=== PATIENT | female | born 1990 ===

== ENCOUNTER 2020-02-03 04:58 | Emergency (ER) | payer SELFPAY ==
[2020-02-03 05:08] VITALS: BP 125/83
[2020-02-03] MEDS ORDERED: FAMOTIDINE 20 MG/2 ML INJ IV ONE (05:09)
[2020-02-03] MEDS ORDERED: ONDANSETRON 4 MG/2 ML INJ IV ONE (05:09)
[2020-02-03] MEDS ORDERED: SODIUM CHLORIDE 0.9% 1000 ML 1,000 ML IV ONE (05:10)
[2020-02-03] MEDS ORDERED: MORPHINE 4 MG/1 ML INJ IV ONE ×2 (05:20→06:31)
[2020-02-03 05:55] LABS: HCG Qualitative,Urine Negative (Negative)
[2020-02-03 05:56] LABS: Bilirubin,Urine NEG (Negative); Blood,Urine NEG (Negative); Color,Urine Yellow (Yellow); Hyaline Casts,Urine 2 /LPF; Mucus,Urine 3+ /HPF; Urobilinogen,Urine < 2.0 mg/dL (<2.0)
[2020-02-03 05:57] LABS: Hematocrit 37.7 % (30.3-42.9); Hemoglobin 13.3 gm/dl (10.1-14.3); Mean Corpuscular HGB Conc 35 % (30-34); Mean Corpuscular Volume 91 fl (79-97); Platelet Count 260 K/mm3 (140-440); Red Blood Count 4.14 M/mm3 (3.65-5.03); Red Cell Distribution Width 13.5 % (13.2-15.2)
--- NOTE | 2020-02-03 06:15 | Emergency Department Report ---
ED N/V/D HPI - General Chief complaint: Abdominal Pain Stated complaint: ABD PAIN Source: patient, EMS Mode of arrival: Ambulatory Limitations: No Limitations - History of Present Illness Initial comments: Patient is a 29-year-old female with past medical history of asthma and GERD who presents to the ED with complaint of acute onset persistent diffuse epigastric pain with intractable nausea and vomiting for the last 12 hours. Patient also complains of low back pain. Patient states that she has not been able to keep anything down and that the epigastric pain has worsened especially in the last 8 hours due to intractable nausea and vomiting. Patient states that no one else at home is had similar symptoms. Patient denies diarrhea, dysuria, urinary frequency and urgency, fever, chills, cough, shortness of breath, chest pain, sore throat, headache, dizziness, syncope, hematemesis, hematochezia, vaginal discharge, vaginal bleeding or change in vision or palpitations. MD complaint: nausea, vomiting, abdominal pain (epigastric) -: Sudden, hour(s) (12) Description of Vomiting: food contents Description of Diarrhea: other (None) Associated Abdominal Pain: Yes (Epigastric pain) Location: epigastric Radiation: none Severity: severe Pain Scale: 7 Quality: aching, constant Consistency: constant Improves with: none Worsens with: eating, vomiting Context: possible food poisoning Associated Symptoms: denies other symptoms, loss of appetite, nausea/vomiting. denies: myalgias, chest pain, cough, diaphoresis, fever/chills, headaches, malaise, rash, dysuria, shortness of breath, syncope, other - Related Data Previous Rx's Medication Instructions Recorded Last Taken Type Dicyclomine [Bentyl] 20 mg PO Q6H PRN #30 tablet 02/03/20 Unknown Rx Famotidine [Pepcid] 20 mg PO Q12H #60 tablet 02/03/20 Unknown Rx Ondansetron [Zofran Odt] 4 mg PO Q6HR PRN #20 tab.rapdis 02/03/20 Unknown Rx Allergies Allergy/AdvReac Type Severity Reaction Status Date / Time No Known Allergies Allergy Unverified 02/03/20 04:59 ED Review of Systems ROS: Stated complaint: ABD PAIN Other details as noted in HPI Constitutional: denies: chills, fever Eyes: denies: eye pain, eye discharge, vision change ENT: denies: ear pain, throat pain Respiratory: denies: cough, shortness of breath, wheezing Cardiovascular: denies: chest pain, palpitations Endocrine: no symptoms reported Gastrointestinal: abdominal pain, nausea, vomiting. denies: diarrhea Genitourinary: denies: urgency, dysuria, discharge Musculoskeletal: denies: back pain, joint swelling, arthralgia Skin: denies: rash, lesions Neurological: denies: headache, weakness, paresthesias Psychiatric: denies: anxiety, depression Hematological/Lymphatic: denies: easy bleeding, easy bruising ED Past Medical Hx - Past Medical History Previous Medical History?: Yes Hx Asthma: Yes - Surgical History Past Surgical History?: No - Social History Smoking Status: Never Smoker Substance Use Type: None - Medications Home Medications: Home Medications Medication Instructions Recorded Confirmed Last Taken Type Dicyclomine [Bentyl] 20 mg PO Q6H PRN #30 tablet 02/03/20 Unknown Rx Famotidine [Pepcid] 20 mg PO Q12H #60 tablet 02/03/20 Unknown Rx Ondansetron [Zofran Odt] 4 mg PO Q6HR PRN #20 tab.rapdis 02/03/20 Unknown Rx ED Physical Exam - General Limitations: No Limitations General appearance: alert, in no apparent distress - Head Head exam: Present: atraumatic, normocephalic, normal inspection - Eye Eye exam: Present: normal appearance, PERRL, EOMI Pupils: Present: normal accommodation - ENT ENT exam: Present: normal exam, normal orophraynx, mucous membranes moist, TM's normal bilaterally, normal external ear exam - Neck Neck exam: Present: normal inspection, full ROM - Respiratory Respiratory exam: Present: normal lung sounds bilaterally. Absent: respiratory distress, wheezes, rales, rhonchi, chest wall tenderness, accessory muscle use, decreased breath sounds - Cardiovascular Cardiovascular Exam: Present: regular rate, normal rhythm, normal heart sounds. Absent: systolic murmur, diastolic murmur, rubs, gallop - GI/Abdominal GI/Abdominal exam: Present: soft, tenderness (Palpable epigastric tenderness), normal bowel sounds. Absent: guarding, rebound, rigid, hyperactive bowel sounds, hypoactive bowel sounds - Extremities Exam Extremities exam: Present: normal inspection, full ROM, normal capillary refill - Back Exam Back exam: Present: normal inspection, full ROM. Absent: tenderness, CVA tenderness (R), CVA tenderness (L), muscle spasm, paraspinal tenderness, vertebral tenderness - Neurological Exam Neurological exam: Present: alert, oriented X3, CN II-XII intact, normal gait, reflexes normal - Psychiatric Psychiatric exam: Present: normal affect, normal mood - Skin Skin exam: Present: warm, dry, intact, normal color. Absent: rash ED Course Vital Signs 02/03/20 05:02 Temperature 98.3 F Pulse Rate 82 Respiratory 16 Rate Blood Pressure 125/83 O2 Sat by Pulse 99 Oximetry ED Medical Decision Making - Lab Data Result diagrams: 02/03/20 05:35 02/03/20 05:35 - Medical Decision Making This is a 29-year-old female with past medical history of asthma and GE RD who presents to the ED with complaint of acute onset persistent diffuse epigastric pain with intractable nausea and vomiting for the last 12 hours. Patient also complains of low back pain. Patient states that she has not been able to keep anything down and that the epigastric pain has worsened especially in the last 8 hours due to intractable nausea and vomiting. Patient states that no one else at home is had similar symptoms. In the ED, patient is alert and oriented x3 and is not in distress with normal vital signs. Patient was treated for nausea and vomiting in the ED, also given pain medication and antacids, as well as normal saline 1 L IV bolus x1. Lab test results were reviewed and showed acute leukocytosis of 13,600 and mild hyponatremia 136 mmol/L. The rest of the lab test results are unremarkable. On reevaluation, patient's pain is well controlled medications. Patient was discharged home on antiemetics, antacids and antispasmodics and was advised to maintain a clear liquid diet for 12 to 24 hours, drink plenty of fluids and follow-up with our primary care physician in 3 to 5 days for reevaluation or return to the ED immediately if symptoms get worse. - Differential Diagnosis Gastritis; GERD; Viral gastroenteritis; Dehydration; ; UTI Critical care attestation.: If time is entered above; I have spent that time in minutes in the direct care of this critically ill patient, excluding procedure time. ED Disposition Clinical Impression: Viral gastroenteritis, Nausea and vomiting in adult patient GERD (gastroesophageal reflux disease) Qualifiers: Esophagitis presence: without esophagitis Qualified Code(s): K21.9 - Gastro- esophageal reflux disease without esophagitis Disposition: TO HOME OR SELFCARE Is pt being admited?: No Does the pt Need Aspirin: No Condition: Stable Instructions: Viral Gastroenteritis, Adult, [id number], Nausea and Vomiting, Adult, [id number], Gastroesophageal Reflux Disease, Adult, [id number], Abdominal Pain (ED) Additional Instructions: Maintain a clear liquid diet for 12 to 24 hours, take medication as needed for nausea and vomiting and pain, drink plenty of fluids and follow-up with a primary care physician in 5 to 7 days for reevaluation or return to the ED immediately if symptoms get worse. Prescriptions: Dicyclomine [Bentyl] 20 mg PO Q6H PRN #30 tablet PRN Reason: Abdominal pain Famotidine [Pepcid] 20 mg PO Q12H #60 tablet Ondansetron [Zofran Odt] 4 mg PO Q6HR PRN #20 tab.rapdis PRN Reason: Nausea Referrals: [facility] [Provider Group] - 3-5 Days Time of Disposition: 06:16 Print Language: SCOTTISH
[2020-02-03 06:20] LABS: Alanine Aminotransferase 32 units/L (7-56); Albumin 4.2 g/dL (3.9-5); Blood Urea Nitrogen 16 mg/dL (7-17); Calcium 9.4 mg/dL (8.4-10.2); Hemolysis Index 6
[2020-02-03 06:21] LABS: BUN/Creatinine Ratio 40
[2020-02-03] MEDS ORDERED: DICYCLOMINE 20 MG/2 ML INJ IM ONE ×2 (06:31)
[2020-02-03] MEDS ORDERED: HYDROmorphone 1 MG/1 ML INJ IV ONE (07:00)
[2020-02-03] MEDS ORDERED: METOCLOPRAMIDE 10 MG/2 ML INJ IV ONE (07:01)
[2020-02-03] MEDS ORDERED: diphenhydrAMINE 50 MG/ML VIAL IV ONE (07:01)
[2020-02-03 07:04] LABS: Basophils % (Manual) 0 % (0.0-1.8); Eosinophils % (Manual) 0 % (0.0-4.3); Platelet Estimate Consistent w Auto; Total Cells Counted 100
== END 2020-02-03 07:42 | disposition home or self-care (01) ==
LOC: ED 04:58
DX: A08.4 Viral intestinal infection, unspecified (principal); K21.9 Gastro-esophageal reflux disease without esophagitis; R11.2 Nausea with vomiting, unspecified; J45.909 Unspecified asthma, uncomplicated; Z79.899 Other long term (current) drug therapy
CPT/HCPCS: 36415; 80053; 81001; 81025; 83690; 85007; 85025; 96361; 96372; 96374; 96375; 96376; 99284; J0500; J1170; J1200; J2270; J2405; J2765; J7030

== ENCOUNTER 2020-03-06 04:55 | Observation (INO) | payer MEDICAID ==
[2020-03-06] MEDS ORDERED: MORPHINE 4 MG/1 ML INJ IV ONE ×3 (05:06→10:44)
[2020-03-06] MEDS ORDERED: FAMOTIDINE 20 MG/2 ML INJ IV ONE ×2 (05:06→08:47)
[2020-03-06] MEDS ORDERED: SODIUM CHLORIDE 0.9% 1000 ML 1,000 ML IV ONE (05:06)
[2020-03-06] MEDS ORDERED: ONDANSETRON 4 MG/2 ML INJ IV ONE (05:06)
[2020-03-06 05:30] LABS: Basophils % (Auto) 0.1 % (0.0-1.8); Eosinophils % (Auto) 0.4 % (0.0-4.3); Hematocrit 38.5 % (30.3-42.9); Hemoglobin 13.3 gm/dl (10.1-14.3); Lymphocytes # (Auto) 1.1 K/mm3 (1.2-5.4); Lymphocytes % (Auto) 12.7 % (13.4-35.0); Mean Corpuscular HGB Conc 35 % (30-34); Mean Corpuscular Volume 92 fl (79-97); Monocytes # (Auto) 0.4 K/mm3 (0.0-0.8); Monocytes % (Auto) 4.3 % (0.0-7.3); Platelet Count 264 K/mm3 (140-440); Red Blood Count 4.17 M/mm3 (3.65-5.03); Red Cell Distribution Width 13.6 % (13.2-15.2)
[2020-03-06 05:51] LABS: Alanine Aminotransferase 27 units/L (7-56); Albumin 4.2 g/dL (3.9-5); Blood Urea Nitrogen 17 mg/dL (7-17); Calcium 9.6 mg/dL (8.4-10.2); Hemolysis Index 3
[2020-03-06 06:03] LABS: BUN/Creatinine Ratio 34
--- NOTE | 2020-03-06 06:50 | Ultrasound Report ---
US abdomen limited INDICATION: Epigastric pain: h/o Gallstones COMPARISON: None. FINDINGS: Pancreas: No significant abnormality identified in the visualized portions of the pancreas. Abdominal aorta: No significant abnormality. IVC: Normal. Liver: No significant abnormality. Gallbladder: Gallstones are present without gallbladder wall thickening or pericholecystic fluid. Bile ducts: There is a stone seen within the common bile duct. The common bile duct measures 8 mm. Additional findings: No significant additional findings. IMPRESSION: Numerous gallstones without other sonographic evidence of acute cholecystitis. There is a stone seen within the common bile duct resulting in mild common bile duct dilation. Signer Name: Tex Christopher MD Signed: 03/06/2020 6:46 AM Workstation Name: [id number]
--- NOTE | 2020-03-06 08:25 | Emergency Department Report ---
ED Abdominal Pain HPI - General Chief Complaint: Abdominal Pain Stated Complaint: ABDOMINAL PAIN Time Seen by Provider: 03/06/20 07:58 Source: patient, old records reviewed Mode of arrival: Ambulatory Limitations: No Limitations - History of Present Illness Initial Comments: 29-year-old female with a past medical history of asthma presents to the hospit al complaining of sudden onset epigastric pain about 4 AM that progressively worsened over several hours. Pain is constant, burning, worse with palpation. Pain started after eating Caesar salad and Ramen noodles. No alleviating factors reported. Pain is moderate to severe in intensity. Positive associated nausea and vomiting without hematemesis or coffee-ground emesis. Patient also denies melena, hematochezia, or fever. Patient was seen here early January with similar pain and was told she probably has inflammation of the gallbladder. She did not receive any imaging at that time. - Related Data Previous Rx's Medication Instructions Recorded Last Taken Type Dicyclomine [Bentyl] 20 mg PO Q6H PRN #30 tablet 02/03/20 Unknown Rx Famotidine [Pepcid] 20 mg PO Q12H #60 tablet 02/03/20 Unknown Rx Ondansetron [Zofran Odt] 4 mg PO Q6HR PRN #20 tab.rapdis 02/03/20 Unknown Rx Allergies Allergy/AdvReac Type Severity Reaction Status Date / Time No Known Allergies Allergy Verified 03/06/20 05:07 ED Review of Systems ROS: Stated complaint: ABDOMINAL PAIN Other details as noted in HPI Comment: All other systems reviewed and negative ED Past Medical Hx - Past Medical History Previous Medical History?: Yes Hx Asthma: Yes Additional medical history: inflamation of gall bladder - Surgical History Past Surgical History?: No - Social History Smoking Status: Never Smoker Substance Use Type: Alcohol - Medications Home Medications: Home Medications Medication Instructions Recorded Confirmed Last Taken Type Dicyclomine [Bentyl] 20 mg PO Q6H PRN #30 tablet 02/03/20 Unknown Rx Famotidine [Pepcid] 20 mg PO Q12H #60 tablet 02/03/20 Unknown Rx Ondansetron [Zofran Odt] 4 mg PO Q6HR PRN #20 tab.rapdis 02/03/20 Unknown Rx ED Physical Exam - General Limitations: No Limitations - Other Other exam information: General: No acute distress Head: Atraumatic Eyes: normal appearance, nonicteric sclera ENT: Moist mucous membranes Neck: Normal appearance, no midline tenderness Chest: Clear to auscultation bilaterally CV: Regular rate and rhythm Abdomen: Soft, normal bowel sounds, epigastric tenderness without rebound or guarding. No distention Back: Normal inspection Extremity: Normal inspection, full range of motion Neuro: Alert O x 3, no facial asymmetry, speech clear, no gross motor sensory deficit Psych: Appropriate behavior Skin: No rash ED Course Vital Signs 03/06/20 03/06/20 05:05 08:53 Temperature 97.9 F Pulse Rate 82 Respiratory 18 18 Rate Blood Pressure 120/82 O2 Sat by Pulse 95 Oximetry - Consultations Consultation #1: 03/06/20 09:39 Dr Banks came to the ED to evaluate patient and recommends admission for ERCP and request surgery consult 03/06/20 09:48 Dr Delatorre (gen surgery) contacted and will evaluate patient during admission. ED Medical Decision Making - Lab Data Result diagrams: 03/06/20 05:15 03/06/20 05:15 Lab Results 03/06/20 03/06/20 03/06/20 Range/Units 05:15 05:15 05:15 WBC 9.0 (4.5-11.0) K/mm3 RBC 4.17 (3.65-5.03) M/mm3 Hgb 13.3 (10.1-14.3) gm/dl Hct 38.5 (30.3-42.9) % MCV 92 (79-97) fl MCH 32 (28-32) pg MCHC 35 H (30-34) % RDW 13.6 (13.2-15.2) % Plt Count 264 (140-440) K/mm3 Lymph % (Auto) 12.7 L (13.4-35.0) % [place] % (Auto) 4.3 (0.0-7.3) % Eos % (Auto) 0.4 (0.0-4.3) % Baso % (Auto) 0.1 (0.0-1.8) % Lymph # (Auto) 1.1 L (1.2-5.4) K/mm3 [place] # (Auto) 0.4 (0.0-0.8) K/mm3 Eos # (Auto) 0.0 (0.0-0.4) K/mm3 Baso # (Auto) 0.0 (0.0-0.1) K/mm3 Seg Neutrophils % 82.5 H (40.0-70.0) % Seg Neutrophils # 7.4 (1.8-7.7) K/mm3 Sodium 133 L (137-145) mmol/L Potassium 3.9 (3.6-5.0) mmol/L Chloride 98.9 (98-107) mmol/L Carbon Dioxide 22 (22-30) mmol/L Anion Gap 16 mmol/L BUN 17 (7-17) mg/dL Creatinine 0.5 L (0.6-1.2) mg/dL Estimated GFR > 60 ml/min BUN/Creatinine Ratio 34 % Glucose 124 H (65-100) mg/dL Calcium 9.6 (8.4-10.2) mg/dL Total Bilirubin 1.00 (0.1-1.2) mg/dL AST 22 (5-40) units/L ALT 27 (7-56) units/L Alkaline Phosphatase 145 H (35-129) units/L Total Protein 7.2 (6.3-8.2) g/dL Albumin 4.2 (3.9-5) g/dL Albumin/Globulin Ratio 1.4 % Lipase 25 (13-60) units/L HCG, Qual Negative (Negative) - Radiology Data Radiology results: report reviewed US abdomen limited INDICATION: Epigastric pain: h/o Gallstones COMPARISON: None. FINDINGS: Pancreas: No significant abnormality identified in the visualized portions of the pancreas. Abdominal aorta: No significant abnormality. IVC: Normal. Liver: No significant abnormality. Gallbladder: Gallstones are present without gallbladder wall thickening or pericholecystic fluid. Bile ducts: There is a stone seen within the common bile duct. The common bile duct measures 8 mm. Additional findings: No significant additional findings. IMPRESSION: Numerous gallstones without other sonographic evidence of acute cholecystitis. There is a stone seen within the common bile duct resulting in mild common bile duct dilation. - Medical Decision Making 29-year-old female presents to the hospital epigastric pain, nausea, vomiting secondary to choledocholithiasis with mild common bile duct dilatation. Case discussed with GI on-call who recommends admission for ERCP with surgical consultation for possible cholecystectomy. At this time no signs of leukocytosis, elevated LFTs with exception of alk phos, or elevated lipase. Patient treated in the ER with morphine, Zofran, Pepcid, and IV fluids with some mild relief in pain with initial morphine dose. Nausea improved. Additional morphine provided. GI and general surgery consulted Critical Care Time: No Critical care attestation.: If time is entered above; I have spent that time in minutes in the direct care of this critically ill patient, excluding procedure time. ED Disposition Clinical Impression: Choledocholithiasis, Intractable abdominal pain, Cholelithiasis Disposition: OP ADMIT IP TO THIS HOSP Is pt being admited?: Yes Condition: Stable Instructions: Abdominal Pain (ED) Time of Disposition: 09:43 (Dr Young/hospitalist)
[2020-03-06] MEDS ORDERED: SODIUM CHLORIDE 0.9% 1000 ML 1,000 ML ONE (08:47)
[2020-03-06] MEDS ORDERED: ONDANSETRON 4 MG/2 ML INJ ONE (08:55)
--- NOTE | 2020-03-06 10:43 | Gastroenterology Consultation ---
History of Present Illness - Reason for Consult Consult date: 03/06/20 Choledocholithiasis Requesting physician: TIMO MORRELL - History of Present Illness Ms. kong alas 29-year-old female presents with abdominal pain found to have choledocholithiasis Patient reports for the last few years she has intermittent abdominal pain in the upper abdomen cramping in quality radiating to the back associate with nausea may be related to eating fatty foods. She reports over the last few months the symptoms have been getting worse, and she reports this is her second ER visit in the last month as her symptoms have been getting progressively worse. She reports currently her pain is mildly improved with the morphine that she received. Prior to receiving the morphine she reports she was having pain that was severe, epigastric, cramping, radiating to the back, associate with nausea and vomiting, duration 1 day, brought on by eating Caesar salad and chicken tenders, worse with eating better with pain medication, overall symptoms getting worse. Obtained/updated/reviewed patient's current medications Past History Past Surgical History: No surgical history Social history: no significant social history Family history: no significant family history Medications and Allergies Allergies Allergy/AdvReac Type Severity Reaction Status Date / Time No Known Allergies Allergy Verified 03/06/20 05:07 Home Medications Medication Instructions Recorded Confirmed Last Taken Type Dicyclomine [Bentyl] 20 mg PO Q6H PRN #30 tablet 02/03/20 Unknown Rx Famotidine [Pepcid] 20 mg PO Q12H #60 tablet 02/03/20 Unknown Rx Ondansetron [Zofran Odt] 4 mg PO Q6HR PRN #20 tab.rapdis 02/03/20 Unknown Rx Review of Systems - Review of Systems All systems: negative (10 Systems reviewed and negative except as mentioned above in the history of present illness) Exam - Constitutional Vital Signs: Temp Pulse Resp BP Pulse Ox 97.9 F 82 18 120/82 95 03/06/20 05:05 03/06/20 05:05 03/06/20 08:53 03/06/20 05:05 03/06/20 05:05 General appearance: no acute distress - EENT Eyes: EOM intact - Neck Neck: supple - Respiratory Respiratory effort: normal - Cardiovascular Rhythm: regular - Gastrointestinal General gastrointestinal: Present: soft, tender - Integumentary Integumentary: Present: dry - Musculoskeletal Musculoskeletal: normal - Neurologic Neurological: alert and oriented x3 - Psychiatric Psychiatric: appropriate mood/affect - Labs CBC & Chem 7: 03/06/20 05:15 03/06/20 05:15 Lab Results: Laboratory Results - last 24 hr 03/06/20 03/06/20 03/06/20 05:15 05:15 05:15 WBC 9.0 RBC 4.17 Hgb 13.3 Hct 38.5 MCV 92 MCH 32 MCHC 35 H RDW 13.6 Plt Count 264 Lymph % (Auto) 12.7 L [place] % (Auto) 4.3 Eos % (Auto) 0.4 Baso % (Auto) 0.1 Lymph # (Auto) 1.1 L [place] # (Auto) 0.4 Eos # (Auto) 0.0 Baso # (Auto) 0.0 Seg Neutrophils % 82.5 H Seg Neutrophils # 7.4 Sodium 133 L Potassium 3.9 Chloride 98.9 Carbon Dioxide 22 Anion Gap 16 BUN 17 Creatinine 0.5 L Estimated GFR > 60 BUN/Creatinine Ratio 34 Glucose 124 H Calcium 9.6 Total Bilirubin 1.00 AST 22 ALT 27 Alkaline Phosphatase 145 H Total Protein 7.2 Albumin 4.2 Albumin/Globulin Ratio 1.4 Lipase 25 HCG, Qual Negative Assessment and Plan Patient with choledocholithiasis and enlarged common bile duct on imaging, there fore recommend maintain patient n.p.o. and ERCP later today to remove the stone. Additionally recommend consulting surgery in order for patient undergo cholecystectomy as she has had recurrent episodes of symptoms then she would benefit from early cholecystectomy - Patient Problems (1) Choledocholithiasis Current Visit: Yes Status: Acute (2) Cholelithiasis Current Visit: Yes Status: Acute (3) Intractable abdominal pain Current Visit: Yes Status: Acute
[2020-03-06 11:03] LABS: Bacteria,Urine 1+ /HPF (Negative); Bilirubin,Urine NEG (Negative); Blood,Urine NEG (Negative); Color,Urine Colorless (Yellow); Protein,Urine <15 mg/dL mg/dL (Negative); Urobilinogen,Urine < 2.0 mg/dL (<2.0)
[2020-03-06] MEDS ORDERED: SODIUM CHLORIDE 0.9% 1000 ML 1,000 ML IV SCH (11:30)
--- NOTE | 2020-03-06 11:37 | History and Physical Report ---
History of Present Illness Date of examination: 03/06/20 Chief complaint: Upper abdominal pain History of present illness: Patient is a 21-year-old female with history of asthma and bipolar disorder, presents with complaints of upper abdominal pain nausea and vomiting x2 since yesterday evening. Pain started around 4 PM yesterday associated with nausea and since then the pain started steadily getting worse and decided to come to the ED as the pain was severe prior to presentation. She had 2 episodes of vomiting once at home and once in the ED. since then nausea and vomiting have improved. Ultrasound of the gallbladder shows multiple gallstones and a stone in the CBD and patient is being admitted for further management. GI and surgical consults on board. Patient denies any fever or chills. She denies any chest pain or shortness of breath Past History Past Medical History: other (Asthma and bipolar disorder) Past Surgical History: No surgical history Social history: no significant social history. denies: smoking, alcohol abuse, prescription drug abuse, IV drug use Family history: no significant family history, other (Patient is adopted) Medications and Allergies Allergies Allergy/AdvReac Type Severity Reaction Status Date / Time No Known Allergies Allergy Verified 03/06/20 05:07 Home Medications Medication Instructions Recorded Confirmed Last Taken Type Dicyclomine [Bentyl] 20 mg PO Q6H PRN #30 tablet 02/03/20 Unknown Rx Famotidine [Pepcid] 20 mg PO Q12H #60 tablet 02/03/20 Unknown Rx Ondansetron [Zofran Odt] 4 mg PO Q6HR PRN #20 tab.rapdis 02/03/20 Unknown Rx Active Meds: Active Medications Acetaminophen (Acetaminophen 325 Mg Tab) 650 mg PO Q4H PRN PRN Reason: Pain MILD(1-3)/Fever >100.5/UMANZOR Albuterol (Albuterol 2.5 Mg/3 Ml Nebu) 2.5 mg IH Q4HRT PRN PRN Reason: Shortness Of Breath Sodium Chloride (Nacl 0.9% 1000 Ml) 1,000 mls @ 75 mls/hr IV DIRECT MICHELLE Morphine Sulfate (Morphine 2 Mg/1 Ml Inj) 2 mg IV Q4H PRN PRN Reason: Pain, Moderate (4-6) Ondansetron HCl (Ondansetron 4 Mg/2 Ml Inj) 4 mg IV Q8H PRN PRN Reason: Nausea And Vomiting Pantoprazole Sodium (Pantoprazole 40 Mg Inj) 40 mg IV DAILY MICHELLE Sodium Chloride (Sodium Chloride 0.9% 10 Ml Flush Syringe) 10 ml IV BID MICHELLE Sodium Chloride (Sodium Chloride 0.9% 10 Ml Flush Syringe) 10 ml IV PRN PRN PRN Reason: LINE FLUSH Review of Systems Constitutional: no weight loss, no fever, no chills, no fatigue, no weakness Ears, nose, mouth and throat: no ear pain, no nasal congestion, no sore throat, no headache, no vertigo Cardiovascular: no chest pain, no palpitations, no syncope, no lightheadedness, no shortness of breath, no high blood pressure Respiratory: no cough, no shortness of breath Gastrointestinal: abdominal pain (In the upper abdomen), nausea, vomiting, no diarrhea, no BRBPR, no melena Genitourinary Female: no dysuria, no urinary frequency Rectal: no pain Musculoskeletal: no neck pain, no low back pain Integumentary: no rash Neurological: no head injury, no seizures, no syncope Psychiatric: other (History of bipolar disorder), no anxiety, no depression Exam - Constitutional Vitals: Temp Pulse Resp BP Pulse Ox 97.9 F 82 20 120/82 95 03/06/20 05:05 03/06/20 05:05 03/06/20 10:52 03/06/20 05:05 03/06/20 05:05 General appearance: Present: no acute distress, well-nourished - EENT Eyes: Present: PERRL, EOM intact ENT: hearing intact, clear oral mucosa - Neck Neck: Present: supple, normal ROM. Absent: masses or JVD - Respiratory Respiratory effort: normal Respiratory: bilateral: CTA - Cardiovascular Rhythm: regular Heart Sounds: Present: S1 & S2 - Extremities Extremities: No edema - Abdominal General gastrointestinal: Present: soft, tender (Tender in the epigastrium and in the right upper quadrant) Female genitourinary: Present: deferred - Rectal Rectal Exam: deferred - Integumentary Integumentary: Present: clear - Musculoskeletal Musculoskeletal: strength equal bilaterally - Psychiatric Psychiatric: appropriate mood/affect - Neurologic Neurologic: no focal deficits Results - Labs CBC & Chem 7: 03/06/20 05:15 03/06/20 05:15 Labs: Abnormal lab results 03/06/20 03/06/20 Range/Units 05:15 05:15 MCHC 35 H (30-34) % Lymph % (Auto) 12.7 L (13.4-35.0) % Lymph # (Auto) 1.1 L (1.2-5.4) K/mm3 Seg Neutrophils % 82.5 H (40.0-70.0) % Sodium 133 L (137-145) mmol/L Creatinine 0.5 L (0.6-1.2) mg/dL Glucose 124 H (65-100) mg/dL Alkaline Phosphatase 145 H (35-129) units/L Assessment and Plan - Patient Problems (1) Choledocholithiasis Current Visit: Yes Status: Acute Plan to address problem: Abdominal ultrasound results reviewed GI consulted Consult note reviewed and appreciated For ERCP N.p.o. IV fluids (2) Cholelithiasis Current Visit: Yes Status: Acute Qualifiers: Cholelithiasis location: gallbladder Cholecystitis presence: without cholecystitis Plan to address problem: Right upper quadrant ultrasound results reviewed GI and surgery consulted Await surgery evaluation for possible cholecystectomy GI note reviewed N.p.o. IV fluids Pain control (3) Intractable abdominal pain Current Visit: Yes Status: Acute Plan to address problem: Secondary to #2 Pain control (4) Hyponatremia Current Visit: Yes Status: Acute Plan to address problem: Mild No need for further hyponatremia work-up Continue IV fluids with normal saline Monitor electrolytes (5) Obesity, Class II, BMI 35-39.9 Current Visit: Yes Status: Acute Plan to address problem: Due to excess calories Counseling done regarding diet, weight loss and exercise once her acute problems are resolved (6) History of bipolar disorder Current Visit: Yes Status: Chronic Plan to address problem: Patient states that she is on Geodon 40 mg Will hold medication as the patient is n.p.o. (7) History of asthma Current Visit: Yes Status: Chronic Plan to address problem: Not in exacerbation Continue albuterol via nebulizer as needed
[2020-03-06] MEDS ORDERED: ONDANSETRON 4 MG/2 ML INJ IV PRN (12:00)
[2020-03-06] MEDS ORDERED: ALBUTEROL 2.5 MG/3 ML NEBU IH PRN (12:00)
[2020-03-06] MEDS ORDERED: ACETAMINOPHEN 325 MG TAB PO PRN (12:00)
[2020-03-06] MEDS ORDERED: WATER FOR IRRIG STERILE 250 ML BOTTLE IR ONE (12:52)
[2020-03-06] MEDS ORDERED: SODIUM CHLORIDE 0.9% 100 ML ONE (13:23)
--- NOTE | 2020-03-06 13:58 | Anesthesia Consultation ---
Anesthesia Consult and Med Hx Date of service: 03/06/20 - Airway Anesthetic Teeth Evaluation: Good ROM Head & Neck: Adequate Mental/Hyoid Distance: Adequate Mallampati Class: Class I Intubation Access Assessment: Good - Pulmonary Exam CTA: Yes - Cardiac Exam Cardiac Exam: RRR - Pre-Operative Health Status ASA Pre-Surgery Classification: ASA2 Proposed Anesthetic Plan: MAC - Pulmonary Hx Asthma: Yes (no inhaler use in several years) Hx Respiratory Symptoms: No - Cardiovascular System Hx Hypertension: No - Central Nervous System CVA: No - Gastrointestinal Hx Gastroesophageal Reflux Disease: No - Endocrine Hx Renal Disease: No Hx Liver Disease: No (choledocholithiasis) Hx Insulin Dependent Diabetes: No Hx Non-Insulin Dependent Diabetes: No Hx Thyroid Disease: No - Hematic Hx Anemia: No - Other Systems Hx Obesity: Yes (BMI 35) - Additional Comments Anesthesia Medical History Comments: Patient consented for MAC for ERCP today and GA for lap ernie scheduled for tomorrow.
--- NOTE | 2020-03-06 14:00 | Anesthesia Day of Surgery ---
Anesthesia Day of Surgery - Day of Surgery Patient Examined: Yes Patient H&P Reviewed: Yes Patient is NPO: Yes
--- NOTE | 2020-03-06 14:05 | Consultation ---
History of Present Illness Consult date: 03/06/20 Chief complaint: choledocolithiasis - History of present illness History of present illness: 21-year-old female with epigastric abdominal pain for 1 day. Pain is crampy localized to the epigastrum and radiates to the back. She has had multiple episodes of pain like this over the last few years. It has been intermittent and getting worse over the last few months. It is associated with fatty food intake. There is associated nausea and vomiting. Patient had another ER visit 4 weeks ago for similar symptoms which resolved with medications. W/U in ER revealed mild elevation in alk phos and U/s abdomen revealed cholelithiasis without cholecystitis, dilated CBD with choledocolithiasis. GI was consulted in ER and patient is scheduled for ERCP. During time of consult, patient about to undergo ERCP. Past History Past Medical History: other (Asthma and bipolar disorder) Past Surgical History: No surgical history Social history: no significant social history. denies: smoking, alcohol abuse, prescription drug abuse, IV drug use Family history: no significant family history, other (Patient is adopted) Medications and Allergies Allergies Allergy/AdvReac Type Severity Reaction Status Date / Time No Known Allergies Allergy Verified 03/06/20 05:07 Home Medications Medication Instructions Recorded Confirmed Last Taken Type Dicyclomine [Bentyl] 20 mg PO Q6H PRN #30 tablet 02/03/20 Unknown Rx Famotidine [Pepcid] 20 mg PO Q12H #60 tablet 02/03/20 Unknown Rx Ondansetron [Zofran Odt] 4 mg PO Q6HR PRN #20 tab.rapdis 02/03/20 Unknown Rx Active Meds: Active Medications Acetaminophen (Acetaminophen 325 Mg Tab) 650 mg PO Q4H PRN PRN Reason: Pain MILD(1-3)/Fever >100.5/UMANZOR Albuterol (Albuterol 2.5 Mg/3 Ml Nebu) 2.5 mg IH Q4HRT PRN PRN Reason: Shortness Of Breath Sodium Chloride (Nacl 0.9% 1000 Ml) 1,000 mls @ 75 mls/hr IV DIRECT MICHELLE Sodium Chloride (Nacl 0.9% 1000 Ml) 1,000 mls @ 50 mls/hr IV DIRECT MICHELLE Morphine Sulfate (Morphine 2 Mg/1 Ml Inj) 2 mg IV Q4H PRN PRN Reason: Pain, Moderate (4-6) Ondansetron HCl (Ondansetron 4 Mg/2 Ml Inj) 4 mg IV Q8H PRN PRN Reason: Nausea And Vomiting Pantoprazole Sodium (Pantoprazole 40 Mg Inj) 40 mg IV DAILY MICHELLE Sodium Chloride (Sodium Chloride 0.9% 10 Ml Flush Syringe) 10 ml IV BID MICHELLE Sodium Chloride (Sodium Chloride 0.9% 10 Ml Flush Syringe) 10 ml IV PRN PRN PRN Reason: LINE FLUSH Review of Systems All systems: negative (10 pt ROS performed and negative except for that listed in HPI) Exam Vital Signs Temp Pulse Resp BP Pulse Ox 97.9 F 82 18 120/82 95 03/06/20 05:05 03/06/20 05:05 03/06/20 05:05 03/06/20 05:05 03/06/20 05:05 Narrative exam: Pt on OR table for ERCP, limited exam Gen.: Awake, alert, oriented 3. No apparent distress ENT: No scleral icterus or conjunctival pallor Results - Labs 03/06/20 05:15 03/06/20 05:15 Abnormal lab results 03/06/20 03/06/20 Range/Units 05:15 05:15 MCHC 35 H (30-34) % Lymph % (Auto) 12.7 L (13.4-35.0) % Lymph # (Auto) 1.1 L (1.2-5.4) K/mm3 Seg Neutrophils % 82.5 H (40.0-70.0) % Sodium 133 L (137-145) mmol/L Creatinine 0.5 L (0.6-1.2) mg/dL Glucose 124 H (65-100) mg/dL Alkaline Phosphatase 145 H (35-129) units/L Diabetes panel 03/06/20 Range/Units 05:15 Sodium 133 L (137-145) mmol/L Potassium 3.9 (3.6-5.0) mmol/L Chloride 98.9 (98-107) mmol/L Carbon Dioxide 22 (22-30) mmol/L BUN 17 (7-17) mg/dL Creatinine 0.5 L (0.6-1.2) mg/dL Glucose 124 H (65-100) mg/dL Calcium 9.6 (8.4-10.2) mg/dL AST 22 (5-40) units/L ALT 27 (7-56) units/L Alkaline Phosphatase 145 H (35-129) units/L Total Protein 7.2 (6.3-8.2) g/dL Albumin 4.2 (3.9-5) g/dL Calcium panel 03/06/20 Range/Units 05:15 Calcium 9.6 (8.4-10.2) mg/dL Albumin 4.2 (3.9-5) g/dL Pituitary panel 03/06/20 Range/Units 05:15 Sodium 133 L (137-145) mmol/L Potassium 3.9 (3.6-5.0) mmol/L Chloride 98.9 (98-107) mmol/L Carbon Dioxide 22 (22-30) mmol/L BUN 17 (7-17) mg/dL Creatinine 0.5 L (0.6-1.2) mg/dL Glucose 124 H (65-100) mg/dL Calcium 9.6 (8.4-10.2) mg/dL Adrenal panel 03/06/20 Range/Units 05:15 Sodium 133 L (137-145) mmol/L Potassium 3.9 (3.6-5.0) mmol/L Chloride 98.9 (98-107) mmol/L Carbon Dioxide 22 (22-30) mmol/L BUN 17 (7-17) mg/dL Creatinine 0.5 L (0.6-1.2) mg/dL Glucose 124 H (65-100) mg/dL Calcium 9.6 (8.4-10.2) mg/dL Total Bilirubin 1.00 (0.1-1.2) mg/dL AST 22 (5-40) units/L ALT 27 (7-56) units/L Alkaline Phosphatase 145 H (35-129) units/L Total Protein 7.2 (6.3-8.2) g/dL Albumin 4.2 (3.9-5) g/dL - Imaging US - abdomen: report reviewed, image reviewed Assessment and Plan 21 yo F with cholelithiasis, choledocolithiasis Plan: 1. ERCP today 2. Recommend cholecystectomy - will discuss with patient tomorrow. If agreeable will proceed with lap ernie tomorrow afternoon. 3. Ok for clear liquid diet from surgical standpoint after ERCP, then NPO p MN tonight 4. prn pain and nausea control 5. DVT ppx 6. repeat CMP in am 7. IVF Thank you for this consultation. Please call with any questions or concerns. Evaluation and treatment of this patient was during the time of the national and state emergency arising from COVID19 coronavirus pandemic. Treatment and procedures performed meet the current and available best practice and guidelines for patient during the COVID pandemic.
[2020-03-06] MEDS ORDERED: HYDROmorphone 1 MG/1 ML INJ ONE (14:10)
[2020-03-06] MEDS ORDERED: MIDAZOLAM 2 MG/2 ML INJ ONE (14:10)
[2020-03-06] MEDS ORDERED: propofoL 200 MG/20 ML VIAL IV ONE ×3 (14:11→14:59)
[2020-03-06] MEDS ORDERED: LIDOCAINE MPF (2%) 20 MG/1 ML VIAL 5 ML ONE (14:14)
[2020-03-06] MEDS ORDERED: GLUCAGON (HUMAN RECOMBINANT) 1 MG/ML INJ IV ONE (14:45)
--- NOTE | 2020-03-06 15:16 | Post Operative Note ---
Pre-op diagnosis: biliary stones Post-op diagnosis: same Findings: ERCP: bulging ampulla - nl pancreatogram - cholangiogram w/ filling defect - shinterotomy - stone x 1 removed - negative other Procedure: ERCP Anesthesia: MAC Surgeon: TATYANA VILLALPANDO Estimated blood loss: none Pathology: list Specimen disposition: to lab Condition: stable Disposition: floor
--- NOTE | 2020-03-06 15:47 | Operative Report ---
PROCEDURE: ERCP with sphincterotomy and stone extraction. INDICATION: Choledocholithiasis. MEDICATIONS: Propofol per LAPEL BASTER. COMPLICATIONS: None. DESCRIPTION OF PROCEDURE: The patient was brought to the procedure suite. The patient had the procedure discussed with her at length. All risks, complications, and benefits were discussed, after which the patient signed for the procedure to be performed. The patient was placed in the left lateral decubitus position. Mouth block was placed in the patient's oral cavity. After adequate sedation medication as above, endoscope was placed into the mouth and brought to level of the second portion of the duodenum. No retroflexion view was performed. The patient's vital signs remained stable throughout the procedure. FINDINGS: There was a slightly bulging ampulla noted in the second portion of the duodenum. It should be noted the esophagus and stomach appeared grossly normal. Sphincterotome was then inserted with the aid of a guidewire. A pancreatogram performed. The pancreatogram appeared normal. Cholangiogram showed a single small defect in the distal common bile duct with approximately 8-9 mm common bile duct. A medium sphincterotomy was performed. A 9-12 mm balloon was used to remove one small stone with a small amount of sludge and debris. Occlusion cholangiogram showed no other defects. No further interventions were performed. No stents were placed. The patient tolerated the procedure well. No complications during the procedure. IMPRESSION: 1. Normal-appearing esophagus and stomach. 2. Mildly bulging ampulla. 3. Normal pancreatogram. 4. Cholangiogram with single defect. 5. Sphincterotomy performed. 6. Stone x 1, removed. 7. No other interventions performed. RECOMMENDATIONS: 1. Follow labs. 2. NPO after midnight. 3. Lap ernie per Surgery. 4. We will follow up in a.m. JOB# [id number] CAB/NTS
--- NOTE | 2020-03-06 15:48 | Fluoroscopy Report ---
INTRAOPERATIVE FLUOROSCOPY: ERCP INDICATION: Choledocholithiasis, cholelithiasis. TECHNIQUE: Intraoperative spot images were obtained during the procedure. FINDINGS: There is expected opacification of the bile and pancreatic ducts without identification of a distinct suspicious filling defect. We see the procedural report for further details. Fluoroscopy Time: 4.7 minutes. Fluoroscopy Images: 10. Signer Name: Greg Draper MD Signed: 03/06/2020 3:44 PM Workstation Name: [id number]
--- NOTE | 2020-03-06 15:52 | Post Anesthesia Evaluation ---
- Post Anesthesia Evaluation Patient Participated: Yes Airway Patent: Yes Stable Respiratory Function: Yes Nausea/Vomiting: No Temp > 96.8F: Yes Pain Manageable: Yes Adequeate Hydration: Yes Anesthesia Complications: No
[2020-03-06] MEDS: MORPHINE 2 MG/1 ML INJ IV PRN ×2 (16:11→20:11)
[2020-03-06] MEDS ORDERED: METOCLOPRAMIDE 10 MG/2 ML INJ IV PRN (19:46)
[2020-03-06] MEDS: ONDANSETRON 4 MG/2 ML INJ IV PRN (20:12)
[2020-03-06] MEDS: METOCLOPRAMIDE 10 MG/2 ML INJ IV PRN (23:00)
[2020-03-07] MEDS: SODIUM CHLORIDE 0.9% 1000 ML 1,000 ML IV SCH ×2 (01:26→15:58)
[2020-03-07] MEDS: MORPHINE 2 MG/1 ML INJ IV PRN ×3 (01:33→22:45)
[2020-03-07] MEDS: ONDANSETRON 4 MG/2 ML INJ IV PRN (01:40)
[2020-03-07] MEDS: METOCLOPRAMIDE 10 MG/2 ML INJ IV PRN ×2 (06:37→22:44)
[2020-03-07 09:11] LABS: Albumin 3.9 g/dL (3.9-5); Blood Urea Nitrogen 12 mg/dL (7-17); Calcium 8.9 mg/dL (8.4-10.2); Hemolysis Index 1
[2020-03-07 09:32] LABS: Alanine Aminotransferase 857 units/L (7-56); BUN/Creatinine Ratio 30
[2020-03-07] MEDS ORDERED: PANTOPRAZOLE 40 MG INJ IV SCH (10:00)
[2020-03-07] MEDS ORDERED: BUPIVACAINE/PF (0.5%) 5 MG/1 ML 30 ML VIAL INFILTRATI ONE ×2 (10:12→11:02)
[2020-03-07] MEDS ORDERED: LIDOCAINE (1%) 10 MG/1 ML VIAL 20 ML MDV ONE (10:12)
--- NOTE | 2020-03-07 10:13 | Event Note ---
Date: 03/07/20 Pt seen this am. Feels well with some pain in epigastrum and with n/v all night. No f/c. Discussed recommendation for cholecystectomy. I discussed the indication, risks, benefits, alternatives to surgery. All questions answered and consent obtained. Will proceed with surgery today. Noted elevation in Bilirubin, LFTs today, s/p ercp yesterday with stone extraction. Discussed with Dr. Rodriguez. Will perform IOC today to r/o another CBD stone.
[2020-03-07] MEDS ORDERED: ceFAZolin/Water 2 GM/20 ML 2 GM/20 ML SYRINGE IV ONE (10:15)
[2020-03-07] MEDS ORDERED: HYDROmorphone 1 MG/1 ML INJ ONE (10:16)
[2020-03-07] MEDS ORDERED: LIDOCAINE MPF (2%) 20 MG/1 ML VIAL 5 ML ONE (10:16)
[2020-03-07] MEDS ORDERED: ROCURONIUM 50 MG/5 ML INJ IV ONE (10:16)
[2020-03-07] MEDS ORDERED: propofoL 200 MG/20 ML VIAL IV ONE (10:16)
[2020-03-07] MEDS ORDERED: ceFAZolin/STERILE WATER 2 GM/20 ML SYRINGE IV NR (10:20)
[2020-03-07] MEDS ORDERED: SODIUM CHLORIDE 0.9% 100 ML ONE (10:21)
[2020-03-07] MEDS ORDERED: WATER FOR IRRIG STERILE 1,500 ML BOTTLE IR ONE (11:01)
[2020-03-07] MEDS ORDERED: LIDOCAINE (1%) 10 MG/1 ML VIAL 20 ML MDV INFILTRATI ONE (11:01)
[2020-03-07] MEDS ORDERED: SODIUM CHLORIDE 0.9% 100 ML IVPB IV ONE (11:02)
[2020-03-07] MEDS ORDERED: HYDROmorphone 1 MG/1 ML INJ IV PRN (11:12)
--- NOTE | 2020-03-07 11:13 | Anesthesia Day of Surgery ---
Anesthesia Day of Surgery - Day of Surgery Patient Examined: Yes Patient H&P Reviewed: Yes Patient is NPO: Yes
[2020-03-07] MEDS ORDERED: IOHEXOL 300 MG/ML 50ML IV ONE (11:41)
[2020-03-07] MEDS ORDERED: dexAMETHasone 20 MG/5 ML VIAL ONE (11:55)
[2020-03-07] MEDS ORDERED: ONDANSETRON 4 MG/2 ML INJ ONE (11:55)
[2020-03-07] MEDS ORDERED: fentaNYL 100 MCG/2 ML INJ ONE (11:58)
[2020-03-07] MEDS ORDERED: LACTATED RINGERS 1,000 ML ONE (12:25)
[2020-03-07] MEDS ORDERED: SODIUM CHLORIDE 0.9% 1000 ML 1,000 ML ONE (12:25)
--- NOTE | 2020-03-07 12:30 | Fluoroscopy Report ---
OPERATIVE CHOLANGIOGRAM CLINICAL DATA: GALLSTONES TECHNICAL DATA: Cholangiography and/or pancreatography; intraoperative. C-arm technology was performed. Images were s ubmitted for interpretation. 6 spot images were obtained fluoroscopy time 43 seconds FINDINGS: There is excellent imaging of the common hepatic duct, common bile duct and cystic ducts stump.. No e vidence of choledocholithiasis. Free flow into the duodenum is present. IMPRESSION: Unremarkable operative cholangiogram. Signer Name: Lee Fox MD Signed: 03/07/2020 12:26 PM Workstation Name: [id number]
[2020-03-07] MEDS ORDERED: NEOSTIGMINE 10MG/10 ML INJ MDV ONE (12:37)
[2020-03-07] MEDS ORDERED: GLYCOPYRROLATE 0.4 MG/2 ML INJ ONE (12:37)
--- NOTE | 2020-03-07 12:49 | Operative Report ---
Operative Report Operative Report: Date of operation: 03/07/2020 Preoperative diagnosis: Choledocholithiasis, cholelithiasis postOperative diagnoses: Same as above Procedure performed: Laparoscopic cholecystectomy Surgeon: Azar Delatorre DO Creel Cleaner: EMILIANA Bhatia Anesthesia: Gen. endotracheal anesthesia, local Findings: Gallbladder filled with stones. Omental adhesions to the gallbladder. Negative cholangiogram. Specimen: Gallbladder Estimated blood loss: 50cc Complications: None Disposition: Stable to PACU HPI an indication: 29-year-old female who presented to the hospital with complaints of severe epigastric and right upper quadrant abdominal pain. Work- up revealed choledocholithiasis on ultrasound of the abdomen. This also showed multiple gallstones in the gallbladder without evidence of cholecystitis. LFTs were within normal limits. It was recommended that the patient undergo ERCP and then cholecystectomy prior to discharge. ERCP was performed and 1 stone extracted from the common bile duct, sphincterotomy performed. All risk, benefits, alternatives to laparoscopic cholecystectomy were discussed with the patient questions answered. LFTs on the day of surgery along with bilirubin was elevated and therefore it was also recommended that a cholangiogram be performed. Procedure in detail: The patient was identified in the preoperative area and taken back to the operating room, placed on the operating room table in supine position. After anesthesia was induced, the abdomen was prepped and draped in usual sterile fashion and timeout was performed. Local anesthetic was infiltrated into all of the skin incision sites. Using a 11 blade a supraumbilical incision was made and through this a Veress needle was used to insufflate the abdomen. The position of the veress needle was confirmed with the saline drop test and the abdomen was then insufflated to 15 mmHg. The veress needle was then removed and a 5 mm Optiview trocar placed through the incision. The abdomen was then inspected and there was no underlying injury to any of the abdominal contents. An additional 12 mm subxyphoid port, and 2, 5mm RUQ ports were then placed under direct visualization. The patient was then placed into reverse Trendelberg and tilted to the left. The gallbladder was visualized. There were omental adhesions to the gallbladder. The gallbladder fundus was grasped and retracted cephalad. The omental adhesions were dissected off the gallbladder using hook electrocautery. The neck of the gallbladder was identified and the cystic duct and artery were then carefully dissected and the critical view obtained. There was chronic inflammation at the neck of the gallbladder. The cystic duct and artery were the only two structures seen entering the gallbladder. 2 clips were placed on the proximal aspect of the cystic artery and one distally and this was transected in between the clips using EndoShears. 1 clip was placed on the distalmost aspect of the cystic duct and a duct anatomy made proximal to this. A cholangiogram catheter was inserted into the cystic duct and clamped with a Josue clamp. Injectable saline was injected into the catheter and flowed with moderate resistance, without leaking. A cholangiogram was then performed using Omnipaque dye. There was visualization of the cystic duct stump, common bile duct, intrahepatic ducts and duodenum. There were no filling defects seen. The cholangiogram catheter was then removed and the gallbladder retracted. 2 additional clips were placed on the proximal aspect of the cystic duct and the duct anatomy completed using EndoShears. The gallbladder was dissected off the liver bed using hook electrocautery with hemostasis being achieved along the way. Bleeding from a vein in the liver bed adjacent to the gallbladder was controlled using clips. The gallbladder was placed into a Endo Catch bag and removed from the abdomen via the 12mm port. The gallbladder fossa was then inspected and there was no identifiable bleeding or bile leakage. Hemostasis was ensured. The clips on the cystic duct and artery were visualized and intact. The patient was then placed into neutral position and Morison's pouch was irrigated and the irrigant returned clear. The 12 mm port fascia was closed with 2, interrupted 0 Vicryl sutures using the Raymond Flores device. The remaining ports were removed under direct visualization. Skin incisions were closed with 4-0 Monocryl subcuticular stitches and skin glue. All skin incisions were once again infiltrated with local anesthetic. At the end case all sponge, instrument, sharp counts were correct 2. The patient was awoken from anesthesia, extubated, taken to PACU in stable condition.
[2020-03-07] MEDS ORDERED: oxyCODONE /ACETAMINOPHEN 5-325MG TAB PO PRN (12:50)
--- NOTE | 2020-03-07 14:52 | Progress Note ---
Assessment and Plan -- Choledocholithiasis Abdominal ultrasound results reviewed GI consulted Consult note reviewed and appreciated s/p ERCP yesterday: - bulging ampulla - nl pancreatogram - cholangiogram w/ filling defect - shinterotomy - stone x 1 removed - negative other Follow LFT, continue IV fluids --Cholelithiasis Right upper quadrant ultrasound results reviewed GI and surgery consulted s/p cholecystectomy today GI note reviewed Start on diet as tolerated, IV fluids Pain control -- Intractable abdominal pain Secondary to as above Continue pain control as needed --Elevated LFT, cont to trend due to Choledocholithiasis and Cholelithiasis --hypokalemia, replete, monitor BMP -- Hyponatremia Mild, No need for further hyponatremia work-up Continue IV fluids with normal saline Monitor electrolytes -- Obesity, Class II, BMI 35-39.9 Due to excess calories Counseling done regarding diet, weight loss and exercise once her acute problems are resolved -- History of bipolar disorder Patient states that she is on Geodon 40 mg Will resume medications -- History of asthma Not in exacerbation Continue albuterol via nebulizer as needed --DVT prophylaxis, SCD 03/07: Status post ERCP yesterday with sphincterotomy and removal of 1 stone. Status post cholecystectomy today. Advance diet per surgery. Plan for discharge when clears by surgery and GI. Subjective Date of service: 03/07/20 Interval history: Patient seen and examined. Medical records and medication list reviewed. No acute event overnight noted by the RN. Patient denies any chest pain or difficulty breathing. Patient is tolerating diet. Discussed plan of care at bedside with patient. s/p cholecystectomy today, c/o abdominal pain Objective - Exam Narrative Exam: GENERAL: well-developed and obese lying on bed appeared to be in no discomfort. HEENT: Normocephalic. Atraumatic. No conjunctival congestion or icterus. Patient has moist mucous membranes. NECK: Supple. Trachea midline. CHEST/LUNGS: Clear to auscultated bilaterally, breathing nonlabored. No wheezes crackles or rhonchi. HEART/CARDIOVASCULAR: Regular in rate and rhythm. S1 and S2 positive. ABDOMEN: Abdomen is soft, + tender. Patient has normal bowel sounds. SKIN: There is no rash. Warm and dry. NEURO: No focal motor deficit. Follows command. MUSCULOSKELETAL: No joint effusion or tenderness. EXTRIMITY: No edema, no cyanosis or clubbing. PSYCH: Cooperative. - Constitutional Vitals: Vital Signs - 12hr 03/07/20 03/07/20 03/07/20 03:00 04:08 09:05 Temperature 98.5 F 98.6 F Pulse Rate 86 59 L Pulse Rate [ 58 L Apical] Respiratory 18 14 19 Rate Blood Pressure 127/68 Blood Pressure 123/70 [Left] O2 Sat by Pulse 97 95 Oximetry 03/07/20 03/07/20 03/07/20 09:30 09:55 10:00 Temperature 98.8 F 98.8 F Pulse Rate 53 L 53 L Pulse Rate [ 61 Apical] Respiratory 18 19 19 Rate Blood Pressure 126/86 126/86 Blood Pressure [Left] O2 Sat by Pulse 98 98 Oximetry 03/07/20 03/07/20 03/07/20 12:50 12:55 13:00 Temperature 97.8 F Pulse Rate 95 H 88 80 Pulse Rate [ Apical] Respiratory 16 18 18 Rate Blood Pressure 123/58 123/65 123/65 Blood Pressure [Left] O2 Sat by Pulse 98 99 98 Oximetry 03/07/20 03/07/20 13:05 13:20 Temperature 98.2 F Pulse Rate 76 75 Pulse Rate [ Apical] Respiratory 19 18 Rate Blood Pressure 126/70 125/67 Blood Pressure [Left] O2 Sat by Pulse 98 98 Oximetry - Labs CBC & Chem 7: 03/08/20 05:36 03/08/20 05:36 Labs: Abnormal lab results 03/07/20 Range/Units 08:29 Potassium 3.3 L (3.6-5.0) mmol/L Creatinine 0.4 L (0.6-1.2) mg/dL Glucose 132 H (65-100) mg/dL Total Bilirubin 4.10 H (0.1-1.2) mg/dL AST 1049 H (5-40) units/L ALT 857 H (7-56) units/L Alkaline Phosphatase 190 H (35-129) units/L
--- NOTE | 2020-03-07 15:04 | Gastroenterology Progress Note ---
Assessment and Plan Patient with choledocholithiasis and enlarged common bile duct on imaging, status post stone removal with ERCP yesterday and cholecystectomy today Trend LFTs, anticipate improvement tomorrow As long as patient continues to do better and LFTs improving from GI perspective can discharge and will not require outpatient follow-up - Patient Problems (1) Choledocholithiasis Current Visit: Yes Status: Acute (2) Cholelithiasis Current Visit: Yes Status: Acute Qualifiers: Cholelithiasis location: gallbladder Cholecystitis presence: without cholecystitis (3) Intractable abdominal pain Current Visit: Yes Status: Acute Subjective Date of service: 03/07/20 Principal diagnosis: Choledocholithiasis Interval history: Status post laparoscopic cholecystectomy today, no stone seen in intraoperative cholangiogram Patient reports her stomach is very sore but her epigastric abdominal pain is improving Objective - Constitutional Vitals: Temp Pulse Resp BP Pulse Ox 98.2 F 75 18 125/67 98 03/07/20 13:20 03/07/20 13:20 03/07/20 13:20 03/07/20 13:20 03/07/20 13:20 General appearance: no acute distress - Labs CBC & Chem 7: 03/06/20 05:15 03/07/20 08:29 Labs: Laboratory Results - last 24 hr 03/07/20 08:29 Sodium 138 Potassium 3.3 L Chloride 103.6 Carbon Dioxide 27 Anion Gap 11 BUN 12 Creatinine 0.4 L Estimated GFR > 60 BUN/Creatinine Ratio 30 Glucose 132 H Calcium 8.9 Total Bilirubin 4.10 H AST 1049 H ALT 857 H Alkaline Phosphatase 190 H Total Protein 6.8 Albumin 3.9 Albumin/Globulin Ratio 1.3
[2020-03-07] MEDS ORDERED: ENOXAPARIN 40 MG/0.4 ML INJ SUB-Q SCH (22:00)
[2020-03-08] MEDS: MORPHINE 2 MG/1 ML INJ IV PRN ×2 (02:59→08:30)
[2020-03-08] MEDS ORDERED: GLUCAGON (HUMAN RECOMBINANT) 1 MG/ML INJ ONE (05:35)
[2020-03-08 06:29] LABS: Hematocrit 37.2 % (30.3-42.9); Hemoglobin 12.6 gm/dl (10.1-14.3); Mean Corpuscular HGB Conc 34 % (30-34); Mean Corpuscular Volume 95 fl (79-97); Platelet Count 203 K/mm3 (140-440); Red Blood Count 3.93 M/mm3 (3.65-5.03); Red Cell Distribution Width 14.1 % (13.2-15.2)
[2020-03-08 06:57] LABS: Alanine Aminotransferase 619 units/L (7-56); Albumin 3.4 g/dL (3.9-5); Blood Urea Nitrogen 5 mg/dL (7-17); Calcium 8.1 mg/dL (8.4-10.2); Hemolysis Index 3
[2020-03-08 07:03] LABS: BUN/Creatinine Ratio 13
[2020-03-08] MEDS ORDERED: POTASSIUM CHLORIDE ER 20 MEQ TAB PO NR (08:30)
[2020-03-08] MEDS ORDERED: KETOROLAC 30 MG/1 ML INJ IV SCH (10:00)
[2020-03-08] MEDS ORDERED: PANTOPRAZOLE 40 MG TAB PO SCH (10:00)
--- NOTE | 2020-03-08 11:32 | Discharge Summary ---
Providers - Providers Date of Admission: 03/06/20 09:49 Date of discharge: 03/08/20 Attending physician: AGUSTIN HICKMAN 03/06/20 09:14 Consult to Physician [CONS] Urgent Comment: Consulting Provider: LEÓN BAZAN Physician Instructions: Reason For Exam: Choledocholithiasis 03/06/20 09:41 Consult to Physician [CONS] Urgent Comment: Consulting Provider: CHEYENNE ENRIQUEZ Physician Instructions: Reason For Exam: choledocholithiasis Primary care physician: OIL DERRICK OPERATOR Hospitalization Condition: Stable Pertinent studies: Abdomen US ERCP Procedures: Cholecystectomy Hospital course: Patient is a 21-year-old female with history of asthma and bipolar disorder, presents with complaints of upper abdominal pain nausea and vomiting. W/U in ER revealed mild elevation in alk phos and U/s abdomen revealed cholelithiasis without cholecystitis, dilated CBD with choledocolithiasis. GI was consulted in ER and patient was scheduled for ERCP. Status post ERCP on 03/07 with sphincterotomy and removal of 1 stone. GS was consulted, Status post cholecystectomy on 03/08. Advanced diet per surgery and patient tolerated. LFT trended down. Patient was then discharged home in stable condition. Discharge diagnosis: -- Choledocholithiasis s/p ERCP with shinterotomy and stone x 1 removed - LFT trended down --Cholelithiasis Right upper quadrant ultrasound results reviewed GI and surgery consulted s/p cholecystectomy, tolerating diet -- Intractable abdominal pain Secondary to as above given pain control as needed --Elevated LFT, Trended down due to Choledocholithiasis and Cholelithiasis --hypokalemia, replete, monitor BMP -- Hyponatremia Mild, No need for further hyponatremia work-up s/p IV fluids with normal saline Monitored electrolytes -- Obesity, Class II, BMI 35-39.9 Due to excess calories Counseling done regarding diet, weight loss and exercise once her acute problems are resolved -- History of bipolar disorder Patient states that she is on Geodon 40 mg Will resume home medications -- History of asthma Not in exacerbation Continue albuterol via nebulizer as needed --DVT prophylaxis, SCD Disposition: TO HOME OR SELFCARE Time spent for discharge: 34 minutes Core Measure Documentation - Palliative Care Palliative Care/ Comfort Measures: Not Applicable - Core Measures Any of the following diagnoses?: none Exam - Physical Exam Narrative exam: GENERAL: well-developed and obese lying on bed appeared to be in no discomfort. HEENT: Normocephalic. Atraumatic. No conjunctival congestion or icterus. Patient has moist mucous membranes. NECK: Supple. Trachea midline. CHEST/LUNGS: Clear to auscultated bilaterally, breathing nonlabored. No wheezes crackles or rhonchi. HEART/CARDIOVASCULAR: Regular in rate and rhythm. S1 and S2 positive. ABDOMEN: Abdomen is soft, mild tender. Patient has normal bowel sounds. SKIN: There is no rash. Warm and dry. NEURO: No focal motor deficit. Follows command. MUSCULOSKELETAL: No joint effusion or tenderness. EXTRIMITY: No edema, no cyanosis or clubbing. PSYCH: Cooperative. - Constitutional Vitals: Temp Pulse Resp BP Pulse Ox 99.4 F 99 H 20 132/77 94 03/08/20 07:20 03/08/20 07:20 03/08/20 07:20 03/08/20 07:20 03/08/20 07:20 Plan Activity: advance as tolerated Weight Bearing Status: Non-Weight Bearing Diet: low fat, low salt, advance as tolerated Follow up with: CHEYENNE ENRIQUEZ DO [Staff Physician] - 7 Days PRIMARY CARE, [Primary Care Provider] - 3-5 Days Prescriptions: oxyCODONE /ACETAMINOPHEN [Percocet 5/325 mg] 1 tab PO Q6H PRN #20 tablet PRN Reason: Pain , Severe (7-10)
[2020-03-08 12:09] VITALS: BP 110/62
--- NOTE | 2020-03-08 12:36 | Progress Note ---
Assessment and Plan 29 yo F s/p lap cholecystectomy with IOC, POD 1 1. cholelithiasis 2. choledocolithiasis ERCP 03/06/20 Pt stable. LFTs, Bili trending down. Plan: 1. reg diet 2. dc IVF 3. prn PO pain control 4. IS/pulm toilet 5. path - chronic cholecystitis - reviewed with patient 6. ok to dc from surgery standpoint. Verbal and Written instructions given and patient advised to follow up in surgery clinic in 2 wks Thank you for this consultation. Please call with any questions or concerns. Evaluation and treatment of this patient was during the time of the national and state emergency arising from COVID19 coronavirus pandemic. Treatment and procedures performed meet the current and available best practice and guidelines for patient during the COVID pandemic. Subjective Date of service: 03/08/20 Narrative: Pt seen and examined. No acute complaints. Incisional pain well controlled. No f/c. Tolerating diet. Ambulating. Objective Vital Signs - 12hr 03/08/20 03/08/20 03/08/20 04:43 07:20 11:03 Temperature 99.5 F 99.4 F 98.9 F Pulse Rate 85 99 H 106 H Respiratory 18 20 20 Rate Blood Pressure 114/73 132/77 110/62 O2 Sat by Pulse 95 94 92 Oximetry - General physical appearance Narrative Exam: Gen: AAOx3. NAD ENT: no icterus or conjunctival pallor CV: S1, S2+ Resp: even and unlabored Abd: soft, NT, ND. incisions c/d/i Ext: no c/c/e - Labs 03/08/20 05:36 03/08/20 05:36 Diabetes panel 03/08/20 Range/Units 05:36 Sodium 137 (137-145) mmol/L Potassium 3.1 L (3.6-5.0) mmol/L Chloride 102.0 (98-107) mmol/L Carbon Dioxide 28 (22-30) mmol/L BUN 5 L (7-17) mg/dL Creatinine 0.4 L (0.6-1.2) mg/dL Glucose 98 (65-100) mg/dL Calcium 8.1 L (8.4-10.2) mg/dL AST 363 H (5-40) units/L ALT 619 H (7-56) units/L Alkaline Phosphatase 188 H (35-129) units/L Total Protein 6.2 L (6.3-8.2) g/dL Albumin 3.4 L (3.9-5) g/dL Calcium panel 03/08/20 Range/Units 05:36 Calcium 8.1 L (8.4-10.2) mg/dL Albumin 3.4 L (3.9-5) g/dL Pituitary panel 03/08/20 Range/Units 05:36 Sodium 137 (137-145) mmol/L Potassium 3.1 L (3.6-5.0) mmol/L Chloride 102.0 (98-107) mmol/L Carbon Dioxide 28 (22-30) mmol/L BUN 5 L (7-17) mg/dL Creatinine 0.4 L (0.6-1.2) mg/dL Glucose 98 (65-100) mg/dL Calcium 8.1 L (8.4-10.2) mg/dL Adrenal panel 03/08/20 Range/Units 05:36 Sodium 137 (137-145) mmol/L Potassium 3.1 L (3.6-5.0) mmol/L Chloride 102.0 (98-107) mmol/L Carbon Dioxide 28 (22-30) mmol/L BUN 5 L (7-17) mg/dL Creatinine 0.4 L (0.6-1.2) mg/dL Glucose 98 (65-100) mg/dL Calcium 8.1 L (8.4-10.2) mg/dL Total Bilirubin 3.80 H (0.1-1.2) mg/dL AST 363 H (5-40) units/L ALT 619 H (7-56) units/L Alkaline Phosphatase 188 H (35-129) units/L Total Protein 6.2 L (6.3-8.2) g/dL Albumin 3.4 L (3.9-5) g/dL
--- NOTE | 2020-03-08 14:43 | Gastroenterology Progress Note ---
Assessment and Plan Patient with choledocholithiasis and enlarged common bile duct on imaging, status post stone removal with ERCP and cholecystectomy with continued clinical improvement in symptoms and improvement in LFTs From GI perspective patient may be discharged she does not require outpatient GI follow-up as long she continues to improve - Patient Problems (1) Choledocholithiasis Current Visit: Yes Status: Acute (2) Cholelithiasis Current Visit: Yes Status: Acute Qualifiers: Cholelithiasis location: gallbladder Cholecystitis presence: without cholecystitis (3) Intractable abdominal pain Current Visit: Yes Status: Acute Subjective Date of service: 03/08/20 Principal diagnosis: Choledocholithiasis Interval history: Status post laparoscopic cholecystectomy yesterdat, reports she is gradually improving, LFTs improving Objective - Constitutional Vitals: Temp Pulse Resp BP Pulse Ox 98.9 F 106 H 20 110/62 92 03/08/20 11:03 03/08/20 11:03 03/08/20 11:03 03/08/20 11:03 03/08/20 11:03 General appearance: no acute distress - Labs CBC & Chem 7: 03/08/20 05:36 03/08/20 05:36 Labs: Laboratory Results - last 24 hr 03/08/20 03/08/20 05:36 05:36 WBC 10.2 RBC 3.93 Hgb 12.6 Hct 37.2 MCV 95 MCH 32 MCHC 34 RDW 14.1 Plt Count 203 Sodium 137 Potassium 3.1 L Chloride 102.0 Carbon Dioxide 28 Anion Gap 10 BUN 5 L Creatinine 0.4 L Estimated GFR > 60 BUN/Creatinine Ratio 13 Glucose 98 Calcium 8.1 L Total Bilirubin 3.80 H AST 363 H ALT 619 H Alkaline Phosphatase 188 H Total Protein 6.2 L Albumin 3.4 L Albumin/Globulin Ratio 1.2
== END 2020-03-08 17:01 | disposition home or self-care (01) ==
LOC: EDBD 04:55 → ED 04:55 → 3A 09:49 → EDBD 09:49 → 4A 22:42 → 3B-SURG 03-07 18:56
PROVIDERS: ADMIT Internal Medicine; ATTEND Internal Medicine
DX: K80.50 Calculus of bile duct without cholangitis or cholecystitis without obstruction (principal); K80.20 Calculus of gallbladder without cholecystitis without obstruction; J45.909 Unspecified asthma, uncomplicated; E87.1 Hypo-osmolality and hyponatremia; E66.9 Obesity, unspecified; F31.9 Bipolar disorder, unspecified; E87.6 Hypokalemia; R79.89 Other specified abnormal findings of blood chemistry; Z68.36 Body mass index [BMI] 36.0-36.9, adult
CPT/HCPCS: 36415; 43262; 47562; 74300; 74330; 76705; 80053; 81001; 83690; 84703; 85025; 85027; 88304; 96361; 96372; 96374; 96375; 96376; 99284; C1726; C9113; G0378; J1100; J1170; J1610; J1650; J1885; J2250; J2270; J2405; J2704; J2710; J2765; J3010; J7030; J7120; Q9967; J0690

== ENCOUNTER 2021-01-07 12:42 | Emergency (ER) | payer MEDICAID ==
[2021-01-07] MEDS ORDERED: MORPHINE 4 MG/1 ML INJ IV ONE (12:56)
[2021-01-07] MEDS ORDERED: ONDANSETRON 4 MG/2 ML INJ IV ONE (12:56)
[2021-01-07] MEDS ORDERED: SODIUM CHLORIDE 0.9% 1000 ML 1,000 ML IV ONE (12:56)
[2021-01-07 13:24] LABS: Basophils % (Auto) 0.2 % (0.0-1.8); Eosinophils # (Auto) 0.3 K/mm3 (0.0-0.4); Eosinophils % (Auto) 2.2 % (0.0-4.3); Hematocrit 38.4 % (30.3-42.9); Hemoglobin 12.6 gm/dl (10.1-14.3); Lymphocytes # (Auto) 2.7 K/mm3 (1.2-5.4); Lymphocytes % (Auto) 23.2 % (13.4-35.0); Mean Corpuscular HGB Conc 33 % (30-34); Mean Corpuscular Volume 91 fl (79-97); Monocytes # (Auto) 0.8 K/mm3 (0.0-0.8); Monocytes % (Auto) 6.7 % (0.0-7.3); Platelet Count 256 K/mm3 (140-440); Red Blood Count 4.23 M/mm3 (3.65-5.03)
--- NOTE | 2021-01-07 13:43 | Emergency Department Report ---
ED Abdominal Pain HPI - General Chief Complaint: Abdominal Pain Stated Complaint: ABD PAIN Time Seen by Provider: 01/07/21 12:56 Source: patient Mode of arrival: Ambulatory Limitations: No Limitations - History of Present Illness Initial Comments: This is a 30-year-old female nontoxic, well nourished in appearance presents to the ED with c/o of nausea and vomiting and abdominal pain several days. Patient describes vomiting as food content and yellow gastric acid. Patient describes abdominal pain as cramping and aching with level of 10/10 diffuse. Patient denies chest pain, short of breath, fever, hemoptysis, blood in stool, chills, headache, stiff neck, numbness or tingling. Patient denies any diarrhea or constipation. Denies any blood in stool. Patient denies any recent travels. Patient denies any allergies. Patient has history of cholecystectomy. MD Complaint: abdominal pain -: days(s) Location: diffuse Radiation: none Migration to: no migration Severity: mild Severity scale (0 -10): 10 Quality: cramping, aching Consistency: constant Improves With: nothing Worsens With: nothing Associated Symptoms: nausea, vomiting. denies: diarrhea, fever, chills, constipation, dysuria, hematemesis, hematochezia, melena, hematuria, anorexia, syncope - Related Data Previous Rx's Medication Instructions Recorded Last Taken Type Famotidine [Pepcid] 20 mg PO Q12H #60 tablet 02/03/20 Unknown Rx Ondansetron [Zofran ODT TAB] 4 mg PO Q6HR PRN #20 tab.rapdis 02/03/20 Unknown Rx oxyCODONE /ACETAMINOPHEN [Percocet 1 tab PO Q6H PRN #20 tablet 03/08/20 Unknown Rx 5/325 mg] Dicyclomine [Bentyl] 20 mg PO Q12H PRN #12 tablet 01/07/21 Unknown Rx Ondansetron [Zofran Odt] 4 mg PO Q12H PRN #12 tab.rapdis 01/07/21 Unknown Rx Allergies Allergy/AdvReac Type Severity Reaction Status Date / Time No Known Allergies Allergy Verified 03/06/20 05:07 ED Review of Systems ROS: Stated complaint: ABD PAIN Other details as noted in HPI Comment: All other systems reviewed and negative Constitutional: denies: chills, fever Eyes: denies: eye pain, eye discharge, vision change ENT: denies: ear pain, throat pain Respiratory: denies: cough, shortness of breath, wheezing Cardiovascular: denies: chest pain, palpitations Endocrine: no symptoms reported Gastrointestinal: abdominal pain, nausea, vomiting. denies: diarrhea, constipation, hematemesis, melena, hematochezia Genitourinary: denies: urgency, dysuria, discharge Musculoskeletal: denies: back pain, joint swelling, arthralgia Skin: denies: rash, lesions Neurological: denies: headache, weakness, paresthesias Psychiatric: denies: anxiety, depression Hematological/Lymphatic: denies: easy bleeding, easy bruising ED Past Medical Hx - Past Medical History Previous Medical History?: Yes Hx Hypertension: No Hx Congestive Heart Failure: No Hx Diabetes: No Hx Liver Disease: No Hx Renal Disease: No Hx Asthma: Yes (no inhaler use in several years) Hx COPD: No Additional medical history: inflamation of gall bladder - Surgical History Past Surgical History?: Yes Hx Cholecystectomy: Yes - Social History Smoking Status: Never Smoker - Medications Home Medications: Home Medications Medication Instructions Recorded Confirmed Last Taken Type Famotidine [Pepcid] 20 mg PO Q12H #60 tablet 02/03/20 Unknown Rx Ondansetron [Zofran ODT TAB] 4 mg PO Q6HR PRN #20 tab.rapdis 02/03/20 Unknown Rx oxyCODONE /ACETAMINOPHEN [Percocet 1 tab PO Q6H PRN #20 tablet 03/08/20 Unknown Rx 5/325 mg] Dicyclomine [Bentyl] 20 mg PO Q12H PRN #12 tablet 01/07/21 Unknown Rx Ondansetron [Zofran Odt] 4 mg PO Q12H PRN #12 tab.rapdis 01/07/21 Unknown Rx ED Physical Exam - General Limitations: No Limitations General appearance: alert, in no apparent distress - Head Head exam: Present: atraumatic, normocephalic - Eye Eye exam: Present: normal appearance - Neck Neck exam: Present: normal inspection, full ROM. Absent: lymphadenopathy - Respiratory Respiratory exam: Present: normal lung sounds bilaterally. Absent: respiratory distress, wheezes, rales, rhonchi, stridor, chest wall tenderness, accessory muscle use, decreased breath sounds, prolonged expiratory - Cardiovascular Cardiovascular Exam: Present: regular rate, normal rhythm, normal heart sounds. Absent: bradycardia, tachycardia, irregular rhythm, systolic murmur, diastolic murmur, rubs, gallop - GI/Abdominal GI/Abdominal exam: Present: soft, tenderness (diffuse), normal bowel sounds. Absent: distended, guarding, rebound, rigid, diminished bowel sounds - Extremities Exam Extremities exam: Present: normal inspection, full ROM - Back Exam Back exam: Present: normal inspection, full ROM. Absent: tenderness, CVA tenderness (R), CVA tenderness (L), muscle spasm, paraspinal tenderness, vertebral tenderness, rash noted - Neurological Exam Neurological exam: Present: alert, oriented X3, normal gait - Psychiatric Psychiatric exam: Present: normal affect, normal mood - Skin Skin exam: Present: warm, dry, intact, normal color. Absent: rash ED Course Vital Signs 01/07/21 01/07/21 01/07/21 12:47 13:10 15:43 Temperature 99.1 F Pulse Rate 77 77 Respiratory 26 H 15 16 Rate Blood Pressure 103/39 Blood Pressure 104/62 [Right] O2 Sat by Pulse 99 98 Oximetry - Reevaluation(s) Reevaluation #1: 01/07/21 14:10 After treatment, patient is speaking in full sentences with no signs of distress noted. ED Medical Decision Making - Lab Data Result diagrams: 01/07/21 13:07 01/07/21 13:07 Lab Results 01/07/21 01/07/21 01/07/21 Range/Units 13:07 13:07 13:07 WBC 11.6 H (4.5-11.0) K/mm3 RBC 4.23 (3.65-5.03) M/mm3 Hgb 12.6 (10.1-14.3) gm/dl Hct 38.4 (30.3-42.9) % MCV 91 (79-97) fl MCH 30 (28-32) pg MCHC 33 (30-34) % RDW 14.0 (13.2-15.2) % Plt Count 256 (140-440) K/mm3 Lymph % (Auto) 23.2 (13.4-35.0) % [place] % (Auto) 6.7 (0.0-7.3) % Eos % (Auto) 2.2 (0.0-4.3) % Baso % (Auto) 0.2 (0.0-1.8) % Lymph # (Auto) 2.7 (1.2-5.4) K/mm3 [place] # (Auto) 0.8 (0.0-0.8) K/mm3 Eos # (Auto) 0.3 (0.0-0.4) K/mm3 Baso # (Auto) 0.0 (0.0-0.1) K/mm3 Seg Neutrophils % 67.7 (40.0-70.0) % Seg Neutrophils # 7.9 H (1.8-7.7) K/mm3 Sodium 137 (137-145) mmol/L Potassium 3.4 L (3.6-5.0) mmol/L Chloride 102.1 (98-107) mmol/L Carbon Dioxide 21 L (22-30) mmol/L Anion Gap 17 mmol/L BUN 18 H (7-17) mg/dL Creatinine 0.7 (0.6-1.2) mg/dL Estimated GFR > 60 ml/min BUN/Creatinine Ratio 26 % Glucose 142 H (65-100) mg/dL Calcium 8.3 L (8.4-10.2) mg/dL Total Bilirubin 0.90 (0.1-1.2) mg/dL AST 62 H (5-40) units/L ALT 31 (7-56) units/L Alkaline Phosphatase 117 (35-129) units/L Total Protein 6.4 (6.3-8.2) g/dL Albumin 3.7 L (3.9-5) g/dL Albumin/Globulin Ratio 1.4 % Lipase 24 (13-60) units/L HCG, Qual Negative (Negative) Urine Color (Yellow) Urine Turbidity (Clear) Urine pH (5.0-7.0) Ur Specific [place] (1.003-1.030) Urine Protein (Negative) mg/dL Urine Glucose (UA) (Negative) mg/dL Urine Ketones (Negative) mg/dL Urine Blood (Negative) Urine Nitrite (Negative) Ur Reducing Substances Urine Bilirubin (Negative) Urine Ictotest Urine Urobilinogen Ur Leukocyte Esterase (Negative) Urine WBC (Auto) (0.0-6.0) /HPF Urine RBC (Auto) (0.0-6.0) /HPF U Epithel Cells (Auto) (0-13.0) /HPF Urine Mucus /HPF 01/07/21 Range/Units 14:00 WBC (4.5-11.0) K/mm3 RBC (3.65-5.03) M/mm3 Hgb (10.1-14.3) gm/dl Hct (30.3-42.9) % MCV (79-97) fl MCH (28-32) pg MCHC (30-34) % RDW (13.2-15.2) % Plt Count (140-440) K/mm3 Lymph % (Auto) (13.4-35.0) % [place] % (Auto) (0.0-7.3) % Eos % (Auto) (0.0-4.3) % Baso % (Auto) (0.0-1.8) % Lymph # (Auto) (1.2-5.4) K/mm3 [place] # (Auto) (0.0-0.8) K/mm3 Eos # (Auto) (0.0-0.4) K/mm3 Baso # (Auto) (0.0-0.1) K/mm3 Seg Neutrophils % (40.0-70.0) % Seg Neutrophils # (1.8-7.7) K/mm3 Sodium (137-145) mmol/L Potassium (3.6-5.0) mmol/L Chloride (98-107) mmol/L Carbon Dioxide (22-30) mmol/L Anion Gap mmol/L BUN (7-17) mg/dL Creatinine (0.6-1.2) mg/dL Estimated GFR ml/min BUN/Creatinine Ratio % Glucose (65-100) mg/dL Calcium (8.4-10.2) mg/dL Total Bilirubin (0.1-1.2) mg/dL AST (5-40) units/L ALT (7-56) units/L Alkaline Phosphatase (35-129) units/L Total Protein (6.3-8.2) g/dL Albumin (3.9-5) g/dL Albumin/Globulin Ratio % Lipase (13-60) units/L HCG, Qual (Negative) Urine Color Yellow (Yellow) Urine Turbidity Clear (Clear) Urine pH 9.0 H (5.0-7.0) Ur Specific [place] 1.000 L (1.003-1.030) Urine Protein 100 mg/dl (Negative) mg/dL Urine Glucose (UA) Negative (Negative) mg/dL Urine Ketones Moderate (Negative) mg/dL Urine Blood Negative (Negative) Urine Nitrite Negative (Negative) Ur Reducing Substances Not Reportable Urine Bilirubin Negative (Negative) Urine Ictotest Not Reportable Urine Urobilinogen Not Reportable Ur Leukocyte Esterase Negative (Negative) Urine WBC (Auto) 3.0 (0.0-6.0) /HPF Urine RBC (Auto) 21.0 (0.0-6.0) /HPF U Epithel Cells (Auto) 3.0 (0-13.0) /HPF Urine Mucus 2+ /HPF - Radiology Data [facility] [address] [place] [address] Cat Scan Report Signed Patient: MARIA FERNANDA Roman MR#: [id number] : 1990 Acct:[id number] Age/Sex: 30 / F ADM Date: 01/07/21 Loc: ED Attending Dr: Lenora bell Physician: SAVANNA DARDEN NP Date of Service: 01/07/21 Procedure(s): CT abdomen pelvis w con Accession Number(s): [id number] cc: SAVANNA DARDEN NP CT ABDOMEN AND PELVIS WITH CONTRAST INDICATION / CLINICAL INFORMATION: abd pain with n.v 100 ml omni 300 . TECHNIQUE: Axial CT images were obtained through the abdomen and pelvis after 100 cc of Omnipaque [address] scans at this location are performed using CT dose reduction for ALARA by means of automated exposure control. COMPARISON: None available. FINDINGS: LOWER CHEST: No significant abnormality. AORTA / ARTERIES: No significant abnormality. IVC / VEINS: No significant abnormality. LYMPH NODES: No significant adenopathy. COLO N: No significant abnormality. APPENDIX: No significant abnormality. STOMACH / SMALL BOWEL: No significant abnormality. PERITONEUM: No free fluid. No free air. No fluid collection. LIVER: No significant abnormality. GALLBLADDER: Cholecystectomy. BILE DUCTS: No significant abnormality. PANCREAS: No s ignificant abnormality. SPLEEN: No significant abnormality. ADRENALS: There are 2 separate left adrenal lesions measuring up to 2.4 and 2.2 cm. There is a right adrenal lesion measuring up to 2.2 cm. These lesions are incompletely evaluated on single phase imaging. RIGHT KIDNEY / URETER: No significant abnormality. LEFT KIDNEY / URETER: No significant abnormality. URINARY BLADDER: No significant abnormality. REPRODUCTIVE ORGANS: No significant abnormality. SKELETAL SYSTEM: No significant abnormality. ADDITIONAL FINDINGS: None. IMPRESSION: 1. No acute intra-abdominal or pelvic pathology. 2. There are two left and one right indeterminant adrenal nodules. These most likely represent adrenal adenomas but are difficult to completely evaluate on single phase imaging. Consider referral to CT of the adrenal glands versus adrenal MRI. Signer Name: Clifton Szymanski DO Signed: 01/07/2021 3:21 PM Workstation Name: [id number] Transcribed By: TMO Dictated By: CLIFTON SZYMANSKI DO Electronically Authenticated By: CLIFTON SZYMANSKI DO Signed Date/Time: 01/07/21 152 DD/ 16 TD/TT: - Medical Decision Making This is a 30-year-old female that presents with abdominal pain. Patient is stable and was examined by me. Labs obtained. UA obtained. CT of abdomen obtained and dictated by the radiologist. Patient is notified of the report with no questions noted by the patient. Vital signs are stable prior to discharge. Patient received medical treatment in the ED which patient stated symptoms has resovled and subsided. Was instructed note to operate any machinery due to possible drowsiness and stated someone will drive the patient home. A by mouth challenge has been obtained and patient tolerated well with no nausea vomiting. Patient was notified of strict precatuions of appendictis symptoms and to return to the ED if symptoms occurs as soon as possible. Patient was also instructed to Follow-up with a primary care doctor in 3-5 days or if symptoms worsen and continue return to emergency room as soon as possible. At time of discharge, the patient does not seem toxic or ill in appearance. No acute signs of distress noted. Patient agrees to discharge treatment plan of care. No further questions noted by the patient. Critical care attestation.: If time is entered above; I have spent that time in minutes in the direct care of this critically ill patient, excluding procedure time. ED Disposition Clinical Impression: Adrenal nodule Abdominal pain Qualifiers: Abdominal location: generalized Qualified Code(s): R10.84 - Generalized abdominal pain Nausea & vomiting Qualifiers: Vomiting type: unspecified Vomiting Intractability: non-intractable Qualified Code(s): R11.2 - Nausea with vomiting, unspecified Disposition: 01 HOME / SELF CARE / HOMELESS Is pt being admited?: No Does the pt Need Aspirin: No Condition: Stable Instructions: Abdominal Pain (ED), Nausea and Vomiting, Adult, Abdominal Pain, Adult Additional Instructions: Follow-up with a primary care doctor in 3-5 days or if symptoms worsen and continue return to emergency room as soon as possible. Prescriptions: Dicyclomine [Bentyl] 20 mg PO Q12H PRN #12 tablet PRN Reason: abdominal pain Ondansetron [Zofran Odt] 4 mg PO Q12H PRN #12 tab.rapdis PRN Reason: Nausea Referrals: PRIMARY CARE, [Primary Care Provider] - 3-5 Days JASON ADAN MD [Staff Physician] - 3-5 Days Forms: Work/School Release Form(ED) Time of Disposition: 15:59
[2021-01-07 13:46] LABS: Alanine Aminotransferase 31 units/L (7-56); Albumin 3.7 g/dL (3.9-5); Blood Urea Nitrogen 18 mg/dL (7-17); Calcium 8.3 mg/dL (8.4-10.2); Hemolysis Index 16
[2021-01-07 13:50] LABS: BUN/Creatinine Ratio 26
[2021-01-07] MEDS ORDERED: POTASSIUM CHLORIDE ER 20 MEQ TAB PO ONE (14:18)
[2021-01-07 14:56] LABS: Mucus,Urine 2+ /HPF
[2021-01-07 15:05] LABS: Color,Urine Yellow (Yellow)
[2021-01-07 15:06] LABS: Bilirubin,Urine Negative (Negative); Blood,Urine Negative (Negative)
--- NOTE | 2021-01-07 15:26 | Cat Scan Report ---
CT ABDOMEN AND PELVIS WITH CONTRAST INDICATION / CLINICAL INFORMATION: abd pain with n.v 100 ml omni 300 . TECHNIQUE: Axial CT images were obtained through the abdomen and pelvis after 100 cc of Omnipaque [address] scans at this location are performed using CT dose reduction for ALARA by means of automated exposure control. COMPARISON: None available. FINDINGS: LOWER CHEST: No significant abnormality. AORTA / ARTERIES: No significant abnormality. IVC / VEINS: No significant abnormality. LYMPH NODES: No significant adenopathy. COLON: No significant abnormality. APPENDIX: No significant abnormality. STOMACH / SMALL BOWEL: No significant abnormality. PERITONEUM: No free fluid. No free air. No fluid collection. LIVER: No significant abnormality. GALLBLADDER: Cholecystectomy. BILE DUCTS: No significant abnormality. PANCREAS: No significant abnormality. SPLEEN: No significant abnormality. ADRENALS: There are 2 separate left adrenal lesions measuring up to 2.4 and 2.2 cm. There is a right adrenal lesion measuring up to 2.2 cm. These lesions are incompletely evaluated on single phase imagi ng. RIGHT KIDNEY / URETER: No significant abnormality. LEFT KIDNEY / URETER: No significant abnormality. URINARY BLADDER: No significant abnormality. REPRODUCTIVE ORGANS: No significant abnormality. SKELETAL SYSTEM: No significant abnormality. ADDITIONAL FINDINGS: None. IMPRESSION: 1. No acute intra-abdominal or pelvic pathology. 2. There are two left and one right indeterminant adrenal nodules. These most likely represent adrena l adenomas but are difficult to completely evaluate on single phase imaging. Consider referral to CT of the adrenal glands versus adrenal MRI. Signer Name: Clifton Valles DO Signed: 01/07/2021 3:21 PM Workstation Name: [id number]
[2021-01-07 15:44] VITALS: BP 104/62
== END 2021-01-07 16:14 | disposition home or self-care (01) ==
LOC: ED 12:42
DX: E27.9 Disorder of adrenal gland, unspecified (principal); R10.84 Generalized abdominal pain; R11.2 Nausea with vomiting, unspecified; J45.909 Unspecified asthma, uncomplicated
CPT/HCPCS: 36415; 74177; 80053; 81001; 83690; 84703; 85025; 96361; 96374; 96375; 99284; J2270; J2405; J7030; Q9967